=== PATIENT | male | born 1990 | race Asian ===

== ENCOUNTER 2019-04-10 23:14 | Emergency (ER) | payer BC ==
[~2019-04-10] VITALS: Ht 170.2 cm; Wt 65.8 kg
[2019-04-10 23:45] VITALS: BP 139/92
--- NOTE | 2019-04-10 23:45 | NUR ---
ED Nurse Note: pt presents to ED with a L ring finger lac. pt states he was peeling potatoes 1 hr [employer] and cut his finger. it has been bleeding since, pt reports not being able to stop the bleeding. pt rates the pain a 3/10
[2019-04-11] MEDS ORDERED: Surgicel 4in x 8in TOPIC ONE
--- NOTE | 2019-04-11 00:42 | Emergency Room Report ---
History of Present Illness General Chief Complaint: Upper Extremity Injury Source: Patient Present Illness [facility] This is a 28-year-old male who is right-hand dominant. He presents with chief complaint of finger laceration to his left ring finger. He was putting potato and actually cut his finger. He has fingertip skin avulsion. It would not stop bleeding. Minimal pain. No other injury. Nothing made it better. Pressure slowed down the bleeding. Allergies: Coded Allergies: No Known Allergies (Unverified , 04/10/19) Patient History Past Medical History: none, see triage record, old chart reviewed Past Surgical History: none Pertinent Family History: none Social History: Denies: smoking Immunizations: other Reviewed Nursing Documentation: PMH: Agreed; PSxH: Agreed Review of Systems Eye: Denies: eye pain, blurred vision ENT: Denies: ear pain, nose congestion, throat swelling Respiratory: Denies: cough, shortness of breath Cardiovascular: Denies: chest pain, palpitations Gastrointestinal: Denies: abdominal pain, diarrhea, nausea, vomiting Musculoskeletal: Denies: back pain, joint pain Skin: Denies: rash Neurological: Denies: headache, numbness Endocrine: Denies: increased thirst, increased urine Hematologic/Lymphatic: Denies: easy bruising All Other Systems: negative except mentioned in HPI Physical Exam Vital Signs Date Time Temp Pulse Resp B/P (MAP) Pulse Ox O2 Delivery O2 Flow Rate FiO2 04/10/19 23:18 98.2 99 18 139/92 (108) 97 Room Air Vitals normal Sp02 EP Interpretation: reviewed, normal General Appearance: well appearing, no apparent distress, alert Head: normocephalic, atraumatic Eyes: bilateral eye PERRL, bilateral eye EOMI ENT: hearing grossly normal, normal pharynx Neck: full range of motion, supple, no meningismus Respiratory: chest non-tender, lungs clear, normal breath sounds Cardiovascular #1: regular rate, rhythm, no murmur Gastrointestinal: normal bowel sounds, non tender, no mass, no organomegaly, no bruit, non-distended Musculoskeletal: back normal, gait/station normal, normal range of motion, other - Left ring finger: There fingertip avulsion. Does not involving the nail. Active oozing of blood. Psychiatric: mood/affect normal Procedures Laceration/Wound Repair Laceration/Wound Repair : Consent: Verbal Wound's Depth, Shape: superficial Wound Length (cm): 1 Wound Explored: clean Irrigated w/ Saline (ccs): 500 Anesthesia: 1% Lidocaine Volume Anesthetic (ccs): 1 Wound Repaired With: sutures Suture Size/Type: 6:0, proline Number of Sutures: 2 Patient Tolerated: Well Complications: None Medical Decision Making Diagnostic Impression: Primary Impression: Fingertip avulsion Qualified Codes: S61.209A - Unspecified open wound of unspecified finger without damage to nail, initial encounter ER Course This patient presents with a fingertip skin avulsion. Initially I tried pressure dressing with Surgicel but he still bleed through it. I did a needle local anesthesia with 1% lidocaine with epinephrine. I placed 2 interrupted sutures to bring the wound together. This stopped the bleeding. Patient tolerated procedure without any problem. Last Vital Signs Date Time Temp Pulse Resp B/P (MAP) Pulse Ox O2 Delivery O2 Flow Rate FiO2 04/10/19 23:45 98.2 18 139/92 97 Room Air 04/10/19 23:18 99 Status: improved Disposition: HOME, SELF-CARE Condition: Stable Additional Instructions: Keep wound clean. Follow-up with your doctor or return here in 7 days for suture removal. Return if symptoms worsen. Vitaliy Pulido MD Apr 11, 2019 00:41
[2019-04-11 01:10] VITALS: BP 139/92
--- NOTE | 2019-04-11 01:10 | NUR ---
ER DISCHARGE NOTE: Patient is cleared to be discharged per ERMD, pt is aox4, on room air, with stable vital signs. pt was given dc instructions, pt was able to verbalize understanding, pt id band removed without complications. pt is able to ambulate with steady gait. pt took all belongings.
== END 2019-04-11 01:10 | disposition home or self-care (01) ==
LOC: EMR 04-11 00:30
DX: S61.215A Laceration without foreign body of left ring finger without damage to nail, initial encounter (principal); W26.0XXA Contact with knife, initial encounter; Y93.G3 Activity, cooking and baking; Y92.010 Kitchen of single-family (private) house as the place of occurrence of the external cause
CPT/HCPCS: 99282